=== PATIENT | female | born 1975 | race Two or more races ===

== ENCOUNTER 2023-02-17 10:13 | Outpatient (AMB) | payer OTHER, SELFPAY ==
--- NOTE | 2023-02-17 10:21 | A.OFFVIS_ITS ---
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 Was informed we can see her back in the office with her MRI. She accidentally brought her Mammogram discs instead of her MRI. Coding Level of Care Code Global (16642) Diagnoses Lumbago M54.50
== END 2023-02-17 10:35 | disposition home or self-care (01) ==
PROVIDERS: PCP Internal Medicine; Referring Provider Physician Assistant; Visit Provider Physician Assistant
DX: M54.50 Low back pain, unspecified (principal)
CPT/HCPCS: 99204

== ENCOUNTER → 2023-02-17 10:13 | Outpatient (BNVA) | payer OTHER, SELFPAY | PROVIDERS: PCP Physician Assistant; Visit Provider Physician Assistant | DX: M54.50 Low back pain, unspecified (principal) | CPT/HCPCS: 99202 ==

== ENCOUNTER 2023-02-26 10:12 | Outpatient (AMB) | payer OTHER, SELFPAY ==
--- NOTE | 2023-02-26 10:16 | HO.SPINEOV ---
Intake Intake Visit Reasons: radiculopathy Intake Note: Ms. De Los Santos is here today c/o low back pain. MRI done @ [facility]/brought disc. 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 She has a pleasant 47-year-old female who comes in today with a chief complaint of low back pain with radiation to her left lower leg. When asked to describe the distribution of her radiation she 1st points to her low back runs her hand across her left posterior buttocks, around over the anterior side of her left thigh across the front of her left knee, and terminates the distribution over the left medial ankle. She states this pain worsens with use of the left leg, and has caused her to feel that her left leg is weaker. She reports a pertinent medical history of a 6 level cervical spine fusion completed in 2020 at [facility] in [place], and also reports an L4-5 lumbar fusion in 2019 also completed at [facility] in [place]. She states that her back / leg pain was largely resolved after her surgery in 2018, then abruptly began again in 2021 with no inciting incident. She reports she is attempted to utilize all mwja-oqt-namrurh medications, and is also utilized ice/heat, heating pads, pain patches, and braces without significant relief of her symptoms. PMH: Fibromyalgia, asthma, hyperthyroidism. 6 level cervical fusion [facility], L4-5 lumbar fusion [facility]. Social hx: Patient does not smoke, reports no substance use. Medications Tylenol with codeine, Flexeril, albuterol, vitamin-D, B12, Zoloft. Allergies: Penicillin, gabapentin. Physical exam: The patient has 4/5 strength with dorsiflexion and knee extension on the left side (pain limiting). The rest of her strength is 5/5 intact. She is reduced sensation over her left anterior knee and left lateral thigh. The rest of her sensation is grossly intact. Her reflexes are 2+ and intact, including those at the patella, however she does have a confounding factor of an SSRI on her medication list. The patient ambulates well, and is able to rise from a seated position without difficulty. (+) straight leg raise on the left. (+) Saba's on the left. (-) Marbella finger test. (-) Null's, (-) clonus. Imaging review: MRI of the lumbar spine completed at [place] shows prior fusion at L4-5 with posterior instrumentation but no cage placement. There is severe central canal stenosis at L3-4 with severe foraminal stenosis at this level. Artifact significantly confounds ability to interpret exiting nerve roots status at L4-5, however the central canal is patent without notable stenosis. Impression: Rahel is a pleasant 47-year-old female who has a extensive history of spinal fusion surgery. She had a 6 level cervical fusion completed at [facility] and [place] in 2020, and has a very large surgical scar from her occiput to her mid-trapezius. She also has a 2 level fusion of the lumbar spine also completed at [facility]. Her symptoms and history are most consistent with a left-sided L4 nerve root impingement, causing severe radiculopathy down her left side. The dermatomal distribution in which she describes her symptoms match his L4 almost perfectly. Her weakness is in a muscular distribution that is consistent with L4. Her imaging supports this. We discussed the possibility of both a extension of her fusion to L3-4, and also discussed the possibility of a less invasive L3-4 laminectomy with foraminotomy. She was informed that I will need to review her films with Dr. Linares who will ultimately make the final decision. I will call her next week after I am able to reviewed this case with him. Thank you for allowing us to care for your patient. The total time spent with this visit with this patient was 45 minutes reviewing history, physical exam, MRI imaging review, and implementation of treatment plan or further diagnostic testing Toni Linares MD,PhD [facility] Coding Level of Care Code New Pt Level 4 (68566) Diagnoses Lumbar radiculopathy M54.16
== END 2023-02-26 10:57 | disposition home or self-care (01) ==
PROVIDERS: PCP Internal Medicine; Referring Provider Physician Assistant; Visit Provider Physician Assistant
DX: M54.16 Radiculopathy, lumbar region (principal)
CPT/HCPCS: 99214

== ENCOUNTER → 2023-02-26 10:12 | Outpatient (BNVA) | payer OTHER, SELFPAY | PROVIDERS: PCP Physician Assistant; Visit Provider Physician Assistant | DX: M54.16 Radiculopathy, lumbar region (principal) | CPT/HCPCS: 99212 ==

== ENCOUNTER 2023-03-02 16:28 | Emergency (ER) | payer OTHER, SELFPAY ==
--- NOTE | ~2023-03-02 | XR_ITS ---
EXAMINATION: XR CHEST CLINICAL INFORMATION: Cough COMPARISON: None available. TECHNIQUE: Frontal view of the chest was obtained. FINDINGS: No significant abnormality is noted involving the heart, lungs, mediastinum, bony thorax or soft tissues. XR/XR chest 1V IMPRESSION: Unremarkable examination.
[2023-03-02 16:47] VITALS: BP 131/73; PULSE 77; RESP 18; TEMP 36.6; O2SAT 97; BMI 33.5
--- NOTE | 2023-03-02 17:00 | ED.GENADULT ---
HPI - General Adult General Chief complaint: Upper Respiratory Symptoms Stated complaint: fever,chills,breathing dif, finished prednisone History of Present Illness HPI narrative: Left without completion of treatment Related Data Allergies Allergy/AdvReac Type Severity Reaction Status Date / Time gabapentin Allergy Angioedema Verified 03/02/23 16:47 latex Allergy Angioedema Verified 03/02/23 16:47 Penicillins [PCN] Allergy Angioedema Verified 03/02/23 16:47 tree nut Allergy Anaphylaxis Verified 03/02/23 16:47 PMFSH Social History Social History Advance Directives: No Advance Directives Information Provided: No Physical Exam ED Vital Signs: Vital Signs - 24 hr 03/02/23 16:47 Temperature 97.9 F Pulse Rate 77 Respiratory Rate 18 Blood Pressure 131/73 Pulse Oximetry 97 Oxygen Delivery Method Room Air BMI result Body Mass Index 33.5 Course Course Course Narrative: RME: 47-year-old female presents to ED coughing, chest pain, fever, and chills. Patient clearly on prednisone. Patient denies any pleurisy, leg swelling, calf pain. Deana chest x-ray ordered. Lungs clear. O2 sat 97% Medical Decision Making Lab Data Labs: Lab Results 03/02/23 Range/Units 17:04 Influenza Type A (PCR) NEGATIVE (Negative) Influenza Type B (PCR) NEGATIVE (Negative) RSV RNA Qual (PCR) NEGATIVE (Negative) SARS-CoV-2 RNA (RT-PCR) NEGATIVE (Negative) Discharge Plan Discharge Clinical Impression: Influenza Patient Disposition: Left W/O Completing Treatment Stand Alone Forms: Against Medical Advice Discharge Date/Time: 03/02/23 21:46
[2023-03-02 18:06] LABS: Influenza A PCR NEGATIVE (Negative); Influenza B PCR NEGATIVE (Negative); Resp Syncy Virus RNA Qual PCR NEGATIVE (Negative); SARS COV2 PCR INHOUSE NEGATIVE (Negative)
== END 2023-03-02 21:46 | disposition left against medical advice (07) ==
PROVIDERS: Physician Assistant; Emergency Provider Emergency Medicine; PCP Internal Medicine
DX: J11.1 Influenza due to unidentified influenza virus with other respiratory manifestations (principal); R50.9 Fever, unspecified; Z20.822 Contact with and (suspected) exposure to COVID-19; Z20.828 Contact with and (suspected) exposure to other viral communicable diseases
CPT/HCPCS: 0241U; 71045; 99281; 99283

== ENCOUNTER 2023-03-03 12:47 | Outpatient (REF) | payer OTHER, SELFPAY ==
--- NOTE | ~2023-03-03 | XR_ITS ---
EXAMINATION: XR LUMBOSACRAL SPINE WITH OBLIQUES CLINICAL INFORMATION: Radiculopathy of lumbar region COMPARISON: MRI lumbar spine from 11/11/2016 TECHNIQUE: 4 views of lumbar spine including lateral views during flexion and extension FINDINGS: Status post instrumented posterior spinal fusion and laminotomies at L4-L5. No osteolysis around the hardware. The fixation screws and posterior rods are well-positioned. There appears to be mature posterolateral bone graft at L4-L5. Chronic 0.2 cm of degenerative retrolisthesis and degenerative loss of disc space at L4-L5. The vertebral body heights are maintained. Mild degenerative narrowing of disc height at L3-L4. No lumbar spine instability on flexion or extension maneuvers. Sacrum and sacroiliac joints are unremarkable.. XR/XR lumbar spine 4V min IMPRESSION: * Degenerative disc disease of L4-L5, status post instrumented posterior spinal fusion. No hardware loosening. * Mild discovertebral degenerative change at L3-L4. * No evidence of lumbar spine instability on flexion or extension views.
== END 2023-03-03 12:48 | disposition home or self-care (01) ==
LOC: HO.HOSX 12:47
PROVIDERS: Visit Provider Physician Assistant
DX: M54.16 Radiculopathy, lumbar region (principal)
CPT/HCPCS: 72110

== ENCOUNTER 2023-06-10 06:11 | Day surgery (SDC) | payer OTHER, SELFPAY ==
[2023-05-27 10:36] VITALS: BP 136/86; PULSE 67; RESP 18; O2SAT 99; BMI 34.6
--- NOTE | 2023-05-27 10:46 | HO.ANESPROP2 ---
Documented by User: Lali Colon NP 05/27/23 10:56 HPI - Anesthesia Eval Consult details Narrative: 48yo F for Left L3-4 Micro Lumbar decompression No recent illness No CP/SOB with exercise 5 x weekly Asthma. STable (exac in 02/2023, but resolved) [facility] Active Problems Active Problems: All Active Problems Lumbar radiculopathy (Acute) Lumbago (Acute) Past Medical History Medical History Back pain Arthritis Spinal stenosis Thyroid disease Anxiety Bronchitis History of GI bleed Gastric ulcer Fibromyalgia Asthma Vitamin B 12 deficiency Family History Family history of problems with anesthesia: Yes (Mom PONV) Surgical History Surgical History Hx of abdominoplasty Hx of section Hx of gastric bypass Hx of hernia repair Hx of bilateral cataract extraction Hx of hysterectomy Hx of elbow surgery History of ear surgery History of abdominal surgery Hx of fusion of cervical spine History of lumbar fusion History of Problems with Anesthesia: Yes (PONV - scopolamine patch) Social History Social History Are you a primary critical care physician to a significant other at home: No Do you presently have visiting nurse or other home services: No Patient Tobacco Use Status: Never used Tobacco Use of substances other than those prescribed or required for medical reasons: Yes Substance Use Frequency: Occasionally Have you been hit, kicked, punched, or otherwise hurt by someone within the past year? If so, by whom?: No Are you DNR?: No Advance Directives: No Advance Directives Information Provided: Yes Advance Directives on File: No Recently lost weight without trying: No How much weight loss: 2-13 pounds Eating poorly because of decreased appetite: No Nutrition screen score: 1 Nutrition Risks: No Nutritional Risk Patient : No : No Meds Allergies Allergy/AdvReac Type Severity Reaction Status Date / Time gabapentin Allergy Angioedema Verified 03/02/23 16:47 latex Allergy Angioedema Verified 03/02/23 16:47 Penicillins [PCN] Allergy Angioedema Verified 03/02/23 16:47 tree nut Allergy Anaphylaxis Verified 03/02/23 16:47 Home Medications ?Medication ?Instructions ?Recorded ?Confirmed ?Last Taken ?Type albuterol sulfate 90 mcg/actuation 2 puff inhalation Q4-6H PRN 05/26/23 05/26/23 Unknown History aerosol inhaler Shortness Of Breath Or Wheezing cholecalciferol (vitamin D3) 125 375 mcg PO QWEEK 05/26/23 05/27/23 Unknown History mcg (5,000 unit) capsule cyanocobalamin (vitamin B-12) 1,000 mcg IM QMONTH 05/26/23 05/26/23 Unknown History 1,000 mcg/mL injection solution folic acid 1 mg tablet 1 mg PO DAILY 05/26/23 05/26/23 Unknown History hydroxyzine HCl 25 mg tablet 25 mg PO DAILY PRN Anxiety 05/26/23 05/27/23 Unknown History sertraline 25 mg tablet 25 mg PO DAILY 05/26/23 05/26/23 Unknown History valacyclovir 500 mg tablet 500 mg PO DAILY PRN Outbreak 05/26/23 05/26/23 Unknown History Exam Height,Weight and Vital Signs: Height 5 ft 2 in Weight 85.729 kg Last Vital Signs Pulse 67 05/27/23 10:36 Resp 18 05/27/23 10:36 BP 136/86 05/27/23 10:36 Pulse Ox 99 05/27/23 10:36 O2 Del Method Room Air 05/27/23 10:36 Airway Mallampati Class: II TM Dist: >3cm Neck ROM: Limited (s/p cspine fusion) Partial: Upper Loose/Missing/Broken Teeth: Yes (Crowned) Heart: RRR Lungs: CTAB Assessment and Plan Assessment Anesthesia Assessment: Anesthesia Plan Discussed and PAT Visit Final Anesthetic Review Family History of Problems with Anesthesia: Yes (Mom PONV) History of Problems with Anesthesia: Yes (PONV - scopolamine patch) Documented by User: Mireya Hood MD 06/10/23 07:29 [facility] Past Medical History Medical History Back pain Arthritis Spinal stenosis Thyroid disease Anxiety Bronchitis History of GI bleed Gastric ulcer Fibromyalgia Asthma Vitamin B 12 deficiency Surgical History Surgical History Hx of abdominoplasty Hx of section Hx of gastric bypass Hx of hernia repair Hx of bilateral cataract extraction Hx of hysterectomy Hx of elbow surgery History of ear surgery History of abdominal surgery Hx of fusion of cervical spine History of lumbar fusion Social History Social History Are you a primary critical care physician to a significant other at home: No Do you presently have visiting nurse or other home services: No Patient Tobacco Use Status: Never used Tobacco Use of substances other than those prescribed or required for medical reasons: Yes Substance Use Frequency: Occasionally Have you been hit, kicked, punched, or otherwise hurt by someone within the past year? If so, by whom?: No Are you DNR?: No Advance Directives: No Advance Directives Information Provided: Yes Advance Directives on File: No Recently lost weight without trying: No How much weight loss: 2-13 pounds Eating poorly because of decreased appetite: No Nutrition screen score: 1 Nutrition Risks: No Nutritional Risk Patient : No : No Meds Allergies Allergy/AdvReac Type Severity Reaction Status Date / Time gabapentin Allergy Angioedema Verified 03/02/23 16:47 latex Allergy Angioedema Verified 03/02/23 16:47 Penicillins [PCN] Allergy Angioedema Verified 03/02/23 16:47 tree nut Allergy Anaphylaxis Verified 03/02/23 16:47 Home Medications ?Medication ?Instructions ?Recorded ?Confirmed ?Last Taken ?Type albuterol sulfate 90 mcg/actuation 2 puff inhalation Q4-6H PRN 05/26/23 05/26/23 Unknown History aerosol inhaler Shortness Of Breath Or Wheezing cholecalciferol (vitamin D3) 125 375 mcg PO QWEEK 05/26/23 05/27/23 Unknown History mcg (5,000 unit) capsule cyanocobalamin (vitamin B-12) 1,000 mcg IM QMONTH 05/26/23 05/26/23 Unknown History 1,000 mcg/mL injection solution folic acid 1 mg tablet 1 mg PO DAILY 05/26/23 05/26/23 Unknown History hydroxyzine HCl 25 mg tablet 25 mg PO DAILY PRN Anxiety 05/26/23 05/27/23 Unknown History sertraline 25 mg tablet 25 mg PO DAILY 05/26/23 05/26/23 Unknown History valacyclovir 500 mg tablet 500 mg PO DAILY PRN Outbreak 05/26/23 05/26/23 Unknown History Assessment and Plan Final Anesthetic Review NPO: Yes ASA Class: II Final Preanesthetic Review: No Changes in Pt Med Stat, Meds/Allgs Chart Reviewed, Consent Obtained/Reviewed and Anes Risks/Benef Reviewed Patient Risk: Low Procedure Risk: Intermediate Anesthetic Plan Anesthetic Plan: GA Disposition: Standard PACU
[2023-05-27 12:04] LABS: Hematocrit 38.6 % (37.0-47.0); Hemoglobin 12.6 g/dl (12.0-16.0); Mean Corpuscular HGB Conc 32.6 g/dl (31.0-35.0); Mean Corpuscular Hemoglobin 29.5 pg (27.0-33.0); Mean Corpuscular Volume 90.4 fL (80.0-98.0); Platelet Count 381 X10*3/uL (160-400); Red Blood Count 4.27 X10*6/uL (4.20-5.50); White Blood Count 6.1 X10*3/uL (4.8-10.8)
[2023-05-27 12:37] LABS: Anion Gap 10 (12-20); Blood Urea Nitrogen 8 mg/dL (9-16); Calcium 9.5 mg/dL (8.4-10.2); Carbon Dioxide 27 mmol/L (22-29); Chloride 106 mmol/L (96-108); Creatinine Clr Calc Pharmacy 99.1; Estimated Glomerular Filt Rate > 60; Glucose Random 86 mg/dL (60-115); Sodium 139 mmol/L (135-145)
[2023-06-10] VITALS (11 sets, daily range): BP systolic 110–146; BP diastolic 69–98; PULSE 59–82; RESP 12–19; TEMP 36.1–36.8; O2SAT 96–100; BMI 35.3
--- NOTE | ~2023-06-10 | FL_ITS ---
EXAMINATION: XR FLUOROSCOPY WITH IMAGES CLINICAL INFORMATION: L3-L4 microlumbar decompression. COMPARISON: Lumbar spine radiographs dated 03/04/2023; MRI lumbar spine dated 03/04/2023. TECHNIQUE: Fluoroscopy Supervised By: Dr. Vinod Linares. Fluoroscopy Time: 3.3 seconds. Cumulative Dose: 1.8038 mGy. DAP: 0.5121 Gycm2. Images: 1. FINDINGS: The submitted images show a surgical probe at the posterior L3-L4 level. There has been a prior L4-L5 posterior fusion. FL/FL guidance in OR IMPRESSION: Intraoperative fluoroscopic guidance is provided during L3-L4 microlumbar decompression. Please see the patient's Operative Report for full procedural details.
[2023-06-10] MEDS: methocarbamoL 750 MG TABLET PO (06:44)
[2023-06-10] MEDS: vancomycin HCL 1,500 MG in 0.9 % Sodium Chloride 500 ML 333.33 MG IV (06:56)
[2023-06-10] MEDS: Lactated Ringers 1,000 ML 100 ML IVCONT (06:57)
--- NOTE | 2023-06-10 07:01 | P.HPSUR_ITS ---
Pre-Procedural Eval Section A - 24 Hr Update-Section A only Date of Service: 06/10/23 The patient is an INPATIENT: No Changes since office visit: No Cold of Flu in the past 2 weeks, No New Medical Problems, No Changes in Medication and No Patient answered all questions The patient has been examined within 24 hours of the surgical procedure. The History & Physical has been completed within 30 days and I have reviewed it.: No Section B - Complete if H&P > 30 days Chief Complaint: Radiculopathy, lumbar region Allergies: Allergies Allergy/AdvReac Type Severity Reaction Status Date / Time gabapentin Allergy Angioedema Verified 03/02/23 16:47 latex Allergy Angioedema Verified 03/02/23 16:47 Penicillins [PCN] Allergy Angioedema Verified 03/02/23 16:47 tree nut Allergy Anaphylaxis Verified 03/02/23 16:47 Review of Systems Sugical H&P ROS: Negative: Constitution, Cardiovascular, Respiratory, Gerry rological, Psychiatric, Hem-Onc, Allergic/Immunologic, Gastrointestinal, Genitourinary, Musculoskeletal, Integumentary, Endocrine and Eyes/Ears/Nose/Throat Exam Surgical H&P Exam: Not Evaluated: HEENT, Not Evaluated: Heart, Not Evaluated: Lungs, Not Evaluated: Extremities, Not Evaluated: Abdomen, Not Evaluated: Skin and Not Evaluated: Neurological Plan Diagnosis/Plan: Unchanged left L3-4 decompression Time Spent With Patient Time: Total time managing care of this patient today _10___ minutes.
--- NOTE | 2023-06-10 08:33 | P.OP_ITS ---
Operative Note Operative Note Date of Service: 06/10/23 Narrative: Preoperative Diagnosis: L3-4 spinal stenosis/lateral recess stenosis/neural foraminal stenosis Operation: Left L3-4 Laminotomy, Partial facetectomy and foraminotomy with use of microscope Consent Informed Consent was obtained for this operation. I have explained the nature, purpose and benefits of the operation. I have discussed the risks and benefit of the operation including possible complications or adverse events with patient/family. Alternative(s) were discussed with the patient with their relative benefits and risks as well as the consequences of not accepting the operation were included in obtaining consent. Surgeon: FERNANDO LEAL MD, PHD Procedure Assisted By: Prabhu Garcia Description of Procedure This 48-year-old female status post L4-5 fusion in another institution. She developed adjacent degenerative disc disease with stenosis L3-4. She has left unilateral note Swetha claudication symptoms that she was offered a left-sided decompression. She is aware that there is a possibility she needs an additional fusion in the near future. The patient was offered a decompression. The procedure complications were explained. The patient was consented. The patient was brought to the operating room and endotracheally intubated. The patient was turned in prone position on the Jovon frame. Prep and drape was done followed by timeout. The Physician medical claims assistant provided access. A mid lumbar incision was made followed by release of the paravertebral muscle on the left side to expose the L3-4 lamina and facet joints. An intraoperative x-ray was obtained to confirm the correct level. The microscope was brought in. I took over the procedure. The high-speed drill was used to do a L3-4 laminotomy until flavum ligament was reached. A #2 Kerrison was used to expand the laminotomy near flush to the pedicles and to include a partial facetectomy. The flavum ligament was opened and resected with a #3 Kerrison to decompress the underlying thecal sac. The flavum ligament was removed to decompress the lateral recess and the exiting L4 nerve root. A long nerve hook could be easily passed along the medial side of the pedicle as a sign of adequate decompression. The microscope was removed. Hemostasis was done. The physician medical claims assistant close the Incision in 2 layers. Steri-Strips were used to approximate incision. An OpSite with Tegaderm was used to cover the incision. All sponge needle counts were correct. Patient was extubated and transported in stable is to recovery room. Anesthesia: General Estimated Blood Loss (ml): 10 mL Complications: None Duration of Surgery: 45 Minutes Postoperative Plan: Discharge to home
--- NOTE | 2023-06-10 08:39 | PM.DS ---
DS: Providers Provider Date of Service: 06/10/23 Date of discharge: 06/10/23 Primary care physician: Nicole Burns MD Admitting clinician: Jose Linares DS: Diagnosis Discharge Diagnosis (1) Lumbar radiculopathy: Status: Acute DS: Summary Time Attestation Discharge Coordination Time (in mins): 5 Quality: Safe Use of Opioids Does Pt have an Active Cancer Diagnosis on the Problem List?: No Quality: Stroke Does the patient have a stroke diagnosis?: No Physical Exam Vital Signs: Vital Signs: Last Vital Signs Temp 98.2 F 06/10/23 06:37 Pulse 65 06/10/23 06:37 Resp 16 06/10/23 06:37 BP 124/83 06/10/23 06:37 Pulse Ox 96 06/10/23 06:37 O2 Del Method Room Air 06/10/23 06:37 BMI result Body Mass Index 35.3 Discharge Plan Discharge Patient Disposition: Home, Self-Care Referrals: Nicole Mcdowell MD [Primary Care Provider] - 1 Week Discharge Medications: New docusate sodium [Colace] 100 mg capsule 100 mg PO BID Qty: 20 0RF oxycodone 5 mg tablet 5 mg PO Q4H PRN (Reason: pain) Qty: 30 0RF Rx Instructions: Partial Fill upon patient request. Continued sertraline 25 mg tablet 25 mg PO DAILY folic acid 1 mg tablet 1 mg PO DAILY hydroxyzine HCl 25 mg tablet 25 mg PO DAILY PRN (Reason: Anxiety) albuterol sulfate 90 mcg/actuation Hfa Aerosol Inhaler 2 puff INHALATION Q4-6H PRN (Reason: Shortness Of Breath Or Wheezing) cholecalciferol (vitamin D3) 125 mcg (5,000 unit) Capsule 375 mcg PO QWEEK valacyclovir 500 mg Tablet 500 mg PO DAILY PRN (Reason: Outbreak) cyanocobalamin (vitamin B-12) 1,000 mcg/mL Solution 1,000 mcg IM QMONTH Discharge Orders: Discharge Order (Routine); Ordered 06/10/23 Ordered By: Prabhu Owens Diet: Advance to usual diet Activity on Discharge: As tolerated Activity Restrictions/Additional Instructions: After your spinal surgery we ask you to observe the following restrictions/guidelines: Activity: It is normal to feel some discomfort as you increase your activity, but that will improve with time. We ask you avoid heavy lifting or acitivities that cause pain. As a general rule, 8lbs is a safe limit for lifting right after surgery. Walk as much as you feel comfortable but not to exhaustion. You will feel extra tired the first few days after surgery. Stay well hydrated. It is OK to walk up and down stairs You may return to driving when you are off narcotics (such as vicodin, oxycodone, dilaudid, etc), and you are back to normal functional capacity. If you have any concerns please check with office before driving. Return to work is specific to each patient and each surgery, so please speak with your doctor/PA at first follow up. Please bring paperwork such as FMLA at that time if you need it filled out. Medications: For optimum pain control, it is best to start with a combination of 500 mg of Tylenol every 4 hours with 600 mg of Motrin every 8 hours, and use narcotics as needed in between for breakthrough pain. We will give you a short supply of narcotics after surgery (usually one weeks worth). If you need more please call the office but do not use more than prescribed. You will need to give our office 48 hours notice if you need narcotics refilled and we do not fill narcotics on weekends or evenings. If you are on a narcotic, it is a good idea to take a stool softener such as colace or senna to avoid constipation If you take blood thinner such as aspirin, Plavix, Coumadin, Effient, Eliquis etc for conditions such as Afib, DVT, Pulmonary embolus, coronary disease, stents etc please speak with your surgeon about specific details as to when you can resume these medications. You can resume NSAIDs on post op day 1 (eg: Motrin, Naproxen, etc). Follow up: Please call the office, , after surgery to arrange a 3 week follow up for wound check. Wound Care: You may remove your dressing on the first day after surgery. ?You may ?leave open to air. Please do not remove the steri strips underneath. they will fall off on their own in one week. IT IS NORMAL FOR THE WOUND TO OOZE OR BE BLOODY FOR A FEW DAYS AFTER SURGERY. ?IF THIS HAPPENS JUST PLACE NEW DRESSING OVER IT TO AVOID STAINING CLOTHES. You may shower on post op day # 1 We ask that you do not let the water soak the wound. If it does get wet, just towel dry lightly. Please do not scrub your incision or place any type of chemical/ointment on the wound. No tub baths, pools or jacuzzis for one month. If you have any leaking or redness from your wound, or fevers, please call office Print Language: Slovenian
[2023-06-10] MEDS: HYDROmorphone HCl 0.5 MG/0.5 ML SYRINGE 0.25 MG IVPUSH ×4 (09:12→09:32)
== END 2023-06-10 11:02 | disposition home or self-care (01) ==
PROVIDERS: Nurse Practitioner; PCP Internal Medicine; Visit Provider Neurological Surgery
PROC: (CPT 63047; principal; 2023-06-10 07:30)
DX: M54.16 Radiculopathy, lumbar region (principal); M48.061 Spinal stenosis, lumbar region without neurogenic claudication; M79.7 Fibromyalgia; M54.50 Low back pain, unspecified; Z98.1 Arthrodesis status; J45.909 Unspecified asthma, uncomplicated; E05.90 Thyrotoxicosis, unspecified without thyrotoxic crisis or storm; Z79.899 Other long term (current) drug therapy
CPT/HCPCS: 63047; 36415; 80048; 85027; J0131; J1100; J1170; J1885; J2250; J2405; J2704; J3010; J3371

== ENCOUNTER → 2023-06-10 06:11 | Outpatient (BNV) | payer OTHER, SELFPAY | PROVIDERS: PCP Internal Medicine; Visit Provider Neurological Surgery | DX: M54.16 Radiculopathy, lumbar region (principal) | CPT/HCPCS: 63047; 99499 ==

== ENCOUNTER 2023-06-30 13:08 | Outpatient (AMB) | payer OTHER, SELFPAY ==
--- NOTE | 2023-06-30 13:09 | HO.SPINEOV ---
Intake Visit Reasons: 1st post op Intake Note: Ms. De Los Santos is here today for 1st Post-op appointment. Program Director/Music Director Required: No Allergies gabapentin Allergy (Verified 06/30/23 13:12) Angioedema latex Allergy (Verified 06/30/23 13:12) Angioedema Penicillins [PCN] Allergy (Verified 06/30/23 13:12) Angioedema tree nut Allergy (Verified 06/30/23 13:12) Anaphylaxis Assessment & Plan Assessment & Plan (1) Status post lumbar spine surgery for decompression of spinal cord: Code(s): Z98.890 - Other specified postprocedural states Category: Medical Plan Procedure: Left L3-4 Laminotomy, Partial facetectomy and foraminotomy Rahel comes in today for her 1st postoperative visit. She reports she is satisfied with the surgery and does feel better than she did pre-operatively. She states she is up walking around and completing the majority of her ADLs without sisue. She is able to climb stairs and walk without assistance. She reports that she still has a very mild left sided radiculopathy, which is worse at night. We discussed how this is likely a result of postoperative inflammation, and should resolve in the coming weeks. She was encouraged to get up and ambulate around her home and outside as much as possible. She asked several questions regarding postoperative healing course which I answered to the best of my ability. No new neurological deficits. Patient is able to ambulate well, rises from a seated position without difficulty. She had some remaining Steri-Strips over the incision site so I removed them. Incision site is closed, well healing, with no signs of drainage. We will follow-up with the patient in 6 weeks for her 2nd postoperative visit. Toni Linares MD,PhD [facility] Coding Level of Care Code Global (83136) Diagnoses Status post lumbar spine surgery for decompression of spinal cord Z98.890
== END 2023-06-30 13:30 | disposition home or self-care (01) ==
PROVIDERS: PCP Internal Medicine; Visit Provider Physician Assistant
DX: Z98.890 Other specified postprocedural states (principal)
CPT/HCPCS: 99024

== ENCOUNTER → 2023-06-30 13:08 | Outpatient (BNVA) | payer MEDICAID, SELFPAY | PROVIDERS: PCP Internal Medicine; Visit Provider Physician Assistant | DX: Z48.811 Encounter for surgical aftercare following surgery on the nervous system (principal) | CPT/HCPCS: 99212 ==

== ENCOUNTER 2023-08-16 09:30 | Outpatient (AMB) | payer OTHER, SELFPAY ==
--- NOTE | 2023-08-16 09:38 | HO.SPINEOV ---
Intake Visit Reasons: 2nd post op Intake Note: Ms. De Los Santos is here today for a 2nd post op Tamper Operator Required: No Allergies gabapentin Allergy (Verified 06/30/23 13:12) Angioedema latex Allergy (Verified 06/30/23 13:12) Angioedema Penicillins [PCN] Allergy (Verified 06/30/23 13:12) Angioedema tree nut Allergy (Verified 06/30/23 13:12) Anaphylaxis Assessment & Plan Assessment & Plan (1) Status post lumbar spine surgery for decompression of spinal cord: Code(s): Z98.890 - Other specified postprocedural states Category: Medical Plan Rahel is a pleasant 48 y/o female who is s/p Left L3-4 Laminotomy, Partial facetectomy and foraminotomy. She continues to report good improvement of symptoms, and states that her left-sided radiculopathy that worsens at night has subsided. She has back to the gym and is engaging in mild cardiovascular activity without issue. She states that her left leg has essentially returned to normal. She does get the occasional feelings of tenderness in her low back but these are short-lived. On examination she is able to ambulate well and rises from a seated position without the assistance of a chair. Her incision site is closed and well healed. There is no need for continued routine follow-up with Rahel. She may follow-up on an as-needed basis. Toni Linares MD,PhD [facility] Coding Level of Care Code Global (55313) Diagnoses Status post lumbar spine surgery for decompression of spinal cord Z98.890
== END 2023-08-16 09:53 | disposition home or self-care (01) ==
PROVIDERS: PCP Internal Medicine; Visit Provider Physician Assistant
DX: Z98.890 Other specified postprocedural states (principal)
CPT/HCPCS: 99024

== ENCOUNTER → 2023-08-16 09:30 | Outpatient (BNVA) | payer OTHER, SELFPAY | PROVIDERS: PCP Internal Medicine; Visit Provider Physician Assistant | DX: Z09 Encounter for follow-up examination after completed treatment for conditions other than malignant neoplasm (principal) | CPT/HCPCS: 99212 ==

== ENCOUNTER 2024-08-01 15:27 | Emergency (ER) | payer OTHER, SELFPAY ==
[2024-08-01 15:53] VITALS: BP 126/80; PULSE 62; RESP 16; TEMP 36.4; O2SAT 99; BMI 34.0
--- NOTE | 2024-08-01 15:58 | ECG_ITS ---
Test Reason : Abdominal pain Blood Pressure : */* mmHG Vent. Rate : 66 BPM Atrial Rate : 66 BPM P-R Int : 144 ms QRS Dur : 94 ms QT Int : 418 ms P-R-T Axes : 27 -13 2 degrees QTcB Int : 438 ms Normal sinus rhythm with sinus arrhythmia Moderate voltage criteria for LVH, may be normal variant ( R in aVL , [place] product ) Borderline ECG No previous ECGs available Referred By: Les Rosado Electronically Signed By: NATALY ENRIQUEZ MD
--- NOTE | 2024-08-01 15:58 | ED.GENADULT ---
HPI - General Adult General Chief complaint: Abdominal Pain Stated complaint: Stomach ulcers History of Present Illness HPI narrative: Left without completion of treatmen by ED provider Related Data Home Medications ?Medication ?Instructions ?Recorded ?Confirmed albuterol sulfate 90 mcg/actuation 2 puff inhalation Q4-6H PRN 05/26/23 05/26/23 aerosol inhaler Shortness Of Breath Or Wheezing cholecalciferol (vitamin D3) 125 375 mcg PO QWEEK 05/26/23 05/27/23 mcg (5,000 unit) capsule cyanocobalamin (vitamin B-12) 1,000 mcg IM QMONTH 05/26/23 05/26/23 1,000 mcg/mL injection solution folic acid 1 mg tablet 1 mg PO DAILY 05/26/23 05/26/23 hydroxyzine HCl 25 mg tablet 25 mg PO DAILY PRN Anxiety 05/26/23 05/27/23 sertraline 25 mg tablet 25 mg PO DAILY 05/26/23 05/26/23 valacyclovir 500 mg tablet 500 mg PO DAILY PRN Outbreak 05/26/23 05/26/23 Previous Rx's ?Medication ?Instructions ?Recorded docusate sodium 100 mg capsule 100 mg PO BID #20 caps 06/10/23 (Colace) oxycodone 5 mg tablet 5 mg PO Q6H PRN severe pain (scale 06/16/23 score 7-10) #30 tabs Allergies Allergy/AdvReac Type Severity Reaction Status Date / Time gabapentin Allergy Angioedema Verified 08/01/24 15:55 latex Allergy Angioedema Verified 08/01/24 15:55 Penicillins [PCN] Allergy Angioedema Verified 08/01/24 15:55 tree nut Allergy Anaphylaxis Verified 08/01/24 15:55 PMFSH Past Medical History Medical History Back pain Arthritis Spinal stenosis Thyroid disease Anxiety Bronchitis History of GI bleed Gastric ulcer Fibromyalgia Asthma Vitamin B 12 deficiency Surgical History Hx of abdominoplasty Hx of section Hx of gastric bypass Hx of hernia repair Hx of bilateral cataract extraction Hx of hysterectomy Hx of elbow surgery History of ear surgery History of abdominal surgery Hx of fusion of cervical spine History of lumbar fusion Social History Social History Are you a primary career development specialist to a significant other at home: No Do you presently have visiting nurse or other home services: No Patient Tobacco Use Status: Never used Tobacco Advance Directives: No Advance Directives Information Provided: No Physical Exam ED Vital Signs: Vital Signs - 24 hr 08/01/24 15:53 Temperature 97.6 F Pulse Rate 62 Respiratory Rate 16 Blood Pressure 126/80 Pulse Oximetry 99 Oxygen Delivery Method Room Air BMI result Body Mass Index 34.0 Course Course Course Narrative: RME: 49-year-old female presents to ED for epigastric acid burning sensation with nausea and vomiting. Patient states yesterday she had 1 episode of vomiting blood. Today she has no episode of vomiting blood. Labs EKG ordered. Medical Decision Making Lab Data 08/01/24 16:03 08/01/24 16:03 Labs: Lab Results 08/01/24 Range/Units 16:03 WBC 5.6 (4.8-10.8) X10*3/uL RBC 4.03 L (4.20-5.50) X10*6/uL Hgb 11.0 L (12.0-16.0) g/dl Hct 33.5 L (37.0-47.0) % MCV 83.1 (80.0-98.0) fL MCH 27.3 (27.0-33.0) pg MCHC 32.8 (31.0-35.0) g/dl RDW 15.4 (11.0-16.0) % Plt Count 353 (160-400) X10*3/uL MPV 9.6 (9.4-12.3) fL Immature Gran % (Auto) 0.0 (0.0-0.4) % Neut % (Auto) 46.9 (45-73) % Lymph % (Auto) 44.1 H (20-40) % [place] % (Auto) 6.1 (2-11) % Eos % (Auto) 2.7 (0-4) % Baso % (Auto) 0.2 (0-2) % Lymph # (Auto) 2.5 (1.2-4.9) X10*3/uL [place] # (Auto) 0.3 (0.1-1.2) X10*3/uL Eos # (Auto) 0.2 (0.0-0.4) X10*3/uL Baso # (Auto) 0.0 (0.0-0.2) X10*3/uL Abs Immat Gran (auto) 0.00 (0.00-0.03) X10*3/uL Absolute Neuts (auto) 2.6 (2.0-8.3) x10*3/uL Absolute Nucleated RBC 0.000 (0.0-0.012) X10*3/uL Nucleated RBC % (auto) 0.0 (0.0-0.2) /100WBC Sodium 141 (135-145) mmol/L Potassium 3.7 (3.3-5.1) mmol/L Chloride 108 (96-108) mmol/L Carbon Dioxide 26 (22-29) mmol/L Anion Gap 11 L (12-20) BUN 7 L (9-16) mg/dL Creatinine 0.72 (0.5-1.4) mg/dL Estim Creat Clear Calc 97.2 Estimated GFR > 60 Random Glucose 86 (60-115) mg/dL Calcium 9.4 (8.4-10.2) mg/dL Total Bilirubin 0.5 (0.0-1.0) mg/dL AST 29 (5-31) U/L ALT 16 (0-31) U/L Alkaline Phosphatase 84 (39-117) U/L Troponin I High Sens < 2.7 (<3.5-17.0) ng/L Total Protein 7.3 (6.5-8.0) g/dL Albumin 4.6 (3.5-5.0) g/dL Lipase 28 (8-78) U/L Discharge Plan Discharge Clinical Impression: Abdominal pain Patient Disposition: Left W/O Completing Treatment Prescriptions: No Action oxycodone 5 mg tablet 5 mg PO Q6H PRN (Reason: severe pain (scale score 7-10)) Qty: 30 0RF Rx Instructions: Partial Fill upon patient request. sertraline 25 mg tablet 25 mg PO DAILY folic acid 1 mg tablet 1 mg PO DAILY hydroxyzine HCl 25 mg tablet 25 mg PO DAILY PRN (Reason: Anxiety) albuterol sulfate 90 mcg/actuation Hfa Aerosol Inhaler 2 puff INHALATION Q4-6H PRN (Reason: Shortness Of Breath Or Wheezing) cholecalciferol (vitamin D3) 125 mcg (5,000 unit) Capsule 375 mcg PO QWEEK valacyclovir 500 mg Tablet 500 mg PO DAILY PRN (Reason: Outbreak) cyanocobalamin (vitamin B-12) 1,000 mcg/mL Solution 1,000 mcg IM QMONTH docusate sodium [Colace] 100 mg capsule 100 mg PO BID Qty: 20 0RF Discharge Date/Time: 08/01/24 22:18
[2024-08-01 16:23] LABS: MANUAL DIFF FLAG NO
[2024-08-01 16:29] LABS: Basophils Percent Auto 0.2 % (0-2); Eosinophils Absolute Auto 0.2 X10*3/uL (0.0-0.4); Eosinophils Percent Auto 2.7 % (0-4); Hematocrit 33.5 % (37.0-47.0); Lymphocytes Absolute Auto 2.5 X10*3/uL (1.2-4.9); Lymphocytes Percent Auto 44.1 % (20-40); Mean Corpuscular HGB Conc 32.8 g/dl (31.0-35.0); Mean Corpuscular Hemoglobin 27.3 pg (27.0-33.0); Mean Corpuscular Volume 83.1 fL (80.0-98.0); Mean Platelet Volume 9.6 fL (9.4-12.3); Monocytes Absolute Auto 0.3 X10*3/uL (0.1-1.2); Monocytes Percent Auto 6.1 % (2-11); Neutrophils Absolute Auto 2.6 x10*3/uL (2.0-8.3); Neutrophils Percent Auto 46.9 % (45-73); Platelet Count 353 X10*3/uL (160-400); Red Blood Count 4.03 X10*6/uL (4.20-5.50); Red Cell Distribution Width 15.4 % (11.0-16.0); White Blood Count 5.6 X10*3/uL (4.8-10.8)
[2024-08-01 16:37] LABS: Alanine Aminotransferase 16 U/L (0-31); Albumin Level 4.6 g/dL (3.5-5.0); Alkaline Phosphatase 84 U/L (39-117); Anion Gap 11 (12-20); Aspartate Amino Transferase 29 U/L (5-31); Bilirubin Total 0.5 mg/dL (0.0-1.0); Blood Urea Nitrogen 7 mg/dL (9-16); Calcium 9.4 mg/dL (8.4-10.2); Carbon Dioxide 26 mmol/L (22-29); Chloride 108 mmol/L (96-108); Creatinine Clr Calc Pharmacy 97.2; Estimated Glomerular Filt Rate > 60; Glucose Random 86 mg/dL (60-115); Lipase 28 U/L (8-78); Potassium 3.7 mmol/L (3.3-5.1); Sodium 141 mmol/L (135-145); Total Protein 7.3 g/dL (6.5-8.0)
[2024-08-01 16:46] LABS: Troponin-I High Sensitivity < 2.7 ng/L (<3.5-17.0)
--- OUTSIDE RECORDS SUMMARY | 2024-08-01 20:19 | XMS_ITS | Clinical Summary ---
Author Organization [facility] [address] [place] [address] [place] [phone] Phone Care Team Providers Care Yacht Hand Name Role Phone Nicole Barber MD Primary Care Prov ider Allergies Active Allergy Reactions Criticality Noted Date Comments Apple 08/18/2019 Wood 08/18/2019 Gabapentin Low 07/24/2020 Other Reaction(s): OTHER depression Gluten 08/18/2019 Latex Medium 10/30/2014 Other Reaction(s): Hives/Urticaria blisters Other 12/16/2023 Justicia Adhatoda ([place] Nut Tree) [Justicia Adhatoda]Anaphylaxis TapeRash/Dermatitis Penicillin G 10/22/2015 Other Reaction(s): Hives/Urticaria Tree Nuts 03/16/2024 Medications albuterol HFA (PROAIR HFA ; PROVENTIL HFA ; VENTOLIN HFA) 90 mcg/actuation inhaler Inhale 2 Puffs into the lungs every 4 hours as needed for Cough or Wheezing. 11/15/19 24 Active folic acid (FOLVITE) 1 mg tablet Take 1 tablet (1,000 mcg total) by mouth 1 (one) time each day. 11/15/19 24 Active hydrOXYzine HCL (ATARAX) 25 mg tablet Take 1 Tablet by mouth daily for 180 days. 10/07/19 24 Active sertraline (ZOLOFT) 25 mg tablet Take 1 tablet (25 mg total) by mouth 1 (one) time each day. 09/10/19 24 Active cyclobenzaprin e (FLEXERIL) 10 mg tablet Take 1 Tablet by mouth 3 times daily as needed (muscle pain) for up to 30 days. 06/16/19 24 Active montelukast (SINGULAIR) 10 mg tablet Take 1 Tablet by mouth at bedtime. 04/27/19 24 Active albuterol 2.5 mg /3 mL (0.083 %) nebulizer solution Take 1 Vial by nebulization every 4 hours as needed for Wheezing. 03/04/19 24 Active fluticasone HFA (FLOVENT HFA) 220 mcg/actuation inhaler Inhale 1 Puff into the lungs 2 times daily. 03/04/19 24 Active diclofenac (VOLTAREN) 1 % topical gel Apply 4 g topically 4 times daily as needed for Other (arthritis pain). 01/14/20 23 Active valACYclovir (VALTREX) 500 mg tablet Take 500 mg by mouth daily as needed. 08/10/19 19 Active cholecalcifero l (VITAMIN D-3) 125 mcg (5,000 unit) capsule TAKE 3 CAPSULES BY MOUTH EVERY 7 DAYS. 36 capsule 3 04/04/19 25 Active estradioL (VIVELLE-DOT) 0.0375 mg/[address] 1 patch on the skin 2 (two) times a week. 24 patch 1 05/19/19 25 026 Active estradioL (ESTRACE) 0.01 % (0.1 mg/gram) vaginal cream PLEASE SEE ATTACHED FOR DETAILED DIRECTIONS 127.5 g 1 07/06/19 25 Active estradioL (Estrace) 0.01 % (0.1 mg/gram) vaginal cream Insert 1 gram vaginally for 2 weeks, then 0.5 gram vaginally for 2 weeks, then 0.5 gram vaginally MWF for maintenance. 127.5 g 1 07/07/19 25 Active estradioL (ESTRACE) 0.01 % (0.1 mg/gram) vaginal cream PLEASE SEE ATTACHED FOR DETAILED DIRECTIONS 127.5 g 1 06/29/19 25 025 Discontinued Hospital, Clinic, or Other Facility Administered Medication Ordered Dose Route Frequency Start Date End Date Status cyanocobalamin (VITAMIN B-12) injection 1,000 mcgIndications:Vitamin B12 deficiency 1000 mcg IM Every 30 days 07/12/2024 01/08/2025 Active cyanocobalamin (VITAMIN B-12) injection 1,000 mcgIndications:Vitamin B12 deficiency 1000 mcg IM Every 30 days 01/14/2024 07/12/2024 Ended Active Problems Problem Noted Date Diagnosed Date On hormone replacement therapy 05/13/2024 Vitamin B12 deficiency 11/28/2021 Fibromyalgia 10/06/2021 Gastric ulcer 10/06/2021 Uncomplicated asthma 10/06/2021 Encounters Date Type Department Care Team Description 08/01/2024 2:00 PM EDT Office Visit [address] [phone] Emmy Gayle PA History of gastric ulcer (Primary Dx); Abdominal bloating; Epigastric abdominal pain; Hematemesis with nausea 07/31/[address] [phone] Nicole Bianchi MD Ulcer; Abdominal Pain (For the past week); Weight Loss (6lbs) 07/12/2024 1:30 PM EDT Clinical Support [address] [phone] Vitamin B12 deficiency (Primary Dx) 07/12/[address] [phone] Barbra Car MA Clinical (B12 Orders) 07/05/2024 8:30 AM EDT Office Visit Vascular Surgery - [place] [address] [facility] [address] [place] [address] Phyllis Guerrero MD Varicose veins of bilateral lower extremities with other complications (Primary Dx); Pain of left lower extremity 06/14/2024 1:30 PM EDT Clinical Support [address] [phone] Vitamin B12 deficiency (Primary Dx) 05/31/[address] [phone] Loretta Nur MA 05/30/2024 12:00 PM EDT Ancillary Procedure [facility] [address] [place] [phone] Varicose veins of bilateral lower extremities with pain; Leg swelling 05/26/2024 Telephone Vascular Surgery - [place] [address] [place] [phone] Bar Esposito MA Reschedule 05/17/2024 1:30 PM EDT Clinical Support Adult Medicine [place] - [address] [phone] Vitamin B12 deficiency (Primary Dx) 05/16/2024 2:45 PM EDT Office Visit Obstetrics and Gynecology - [address] [phone] Leatha Bernard CNM On hormone replacement therapy (Primary Dx); Vaginal dryness, menopausal from Last 3 Months Immunizations Name Administration Dates Next Due Influenza trivalent, with pr eservative (Fluzone; Afluria) 6mo and older 10/23/2015,10/30/2014 PPD Test 10/12/2014 Pneumococcal polysaccharide 23 valent (Pneumovax 23) 2yo and older 11/19/2016 Tdap Tetanus diptheria acell ular pertussis (Boostrix; Adacel) 7yo and older 01/05/2023 Surgical History Surgery Date Site/Laterality Comments OTHER SURGICAL HISTORY 2015 PROCEDURE: [place] ARTHRD ANT INTERBODY MIN DSC LUMBAR; COMMENT: lumbar fusion - dr. mota NECK SURGERY 2019 PROCEDURE: HISTORICAL NECK SURGERY; COMMENT: dr. mota - cervical fusion ELBOW SURGERY 2019 Right PROCEDURE: HISTORICAL ELBOW SURGERY; COMMENT: ulnar nerve - dr. mota OTHER SURGICAL HISTORY 2018 Right PROCEDURE: HISTORICAL EAR SURGERY; COMMENT: right ear reconstruction PARTIAL HYSTERECTOMY PROCEDURE: NH SUPRACERVICAL ABDL HYSTER W/WO RMVL TUBE OVARY ABDOMINAL SURGERY PROCEDURE: HISTORICAL ABDOMINAL SURGERY; COMMENT: prodedure for bleeding ulcer BACK SURGERY 05/2023 PROCEDURE: HISTORICAL BACK SURGERY; COMMENT: Left L3-L4 laminectomy with partial facetectomy and foraminotomy; Dr. Linares Medical History Medical History Date Comments Fibromyalgia 10/06/2021 DX:Fibromyalgia S/P cervical spinal fusion 10/06/2021 DX:S/ P cervical spinal fusion S/P lumbar fusion 10/06/2021 DX:S/P lumbar fusion Uncomplicated asthma 10/06/2021 DX:Uncompli cated asthma History of gastric ulcer 10/06/2021 DX:Hist ory of gastric ulcer H/O: GI bleed 10/06/2021 DX:H/O: GI bleed Vitamin B12 deficiency 11/28/2021 DX:Vitami n B12 deficiency Family History Medical History Relation Name Comments Arthritis Brother 1 Prabhu Asthma Brother 1 Prabhu Arthritis Brother 2 [place]em[place] Asthma Brother 2 [place] Asthma Daughter Liliana Depression Daughter Liliana Diabetes Father Heart attack Father Hypertension Father with CAD Alzheimer's disease Maternal Grandfather Other: GI issues Maternal Grandmother Arthritis Mother Asthma Mother Depression Mother Hypertension Mother Other: Fibromyalgia Mother Asthma Son 1 Goyo ADD / ADHD Son 2 Ayden Asthma Son 2 Ayden Colon cancer Neg Hx Ovarian cancer Neg Hx Stroke Neg Hx Relation Name Status Comments Brother 1 Prabhu Alive Brother 2 [place] Alive Daughter Liliana Alive Father Maternal Grandfather Maternal Grandmother Mother Alive Paternal Grandfather Paternal Grandmother Son 1 Goyo Alive Son 2 Ayden Alive Social History Tobacco Use Types Packs/Day Years Used Date Smoking Tobacco: Never Smokeless Tobacco: Never Tobacco Cessation:Counseling Given: Not Answered Alcohol Use Standard Drinks/Week Comments Yes 0 (1 standard drink = 0.6 oz pur e alcohol) soc Housing Instability Answer Date Recorde d Are you worried that in the next 2 months you may not have stable housing? No 06/13/2024 Food Access & Nutrition Answer Date Rec orded Do you have access to a vari ety of food including fruits and vegetables? Patient declined 06/13/2024 Health Literacy Answer Date Recorded How often do you need to hav e someone help you when you read instructions, pamphlets, or other written material from your doctor or pharmacy? Never 06/13/2024 Caregiver: How often do you need to have someone help you when you read instructions, pamphlets, or other written material from your doctor or pharmacy? Not on file 06/13/2024 Financial Risk Answer Date Recorded How hard is it for you to pa y for the very basics like food, housing, medical care, and air conditioning / heating? Not very hard 06/13/2024 Transportation Answer Date Recorded Has the lack of transportati on kept you from meetings, work, or from getting things needed for daily living? No Has the lack of transportati on kept you from medical appointments or from getting medications? No 06/13/2024 Social Isolation Answer Date Recorded How often do you feel lonely or isolated from th ose around you? Rarely 06/13/2024 Food Risk Answer Date Recorded Within the past 12 months we worried whether our food would run out before we got money to buy more. Never true 06/13/2024 Within the past 12 months th e food we bought just didn't last and we didn't have money to get more. Never true 06/13/2024 Dependent Care Answer Date Recorded Do you need help finding or paying for care for your loved ones. For example, early childhood coordinator or elderly care for an older adult? Unable to respond 06/13/2024 Education Answer Date Recorded Do you think completing more education or training, like finishing a GED, going to college, or learning a trade, would be helpful for you? N/A 06/13/2024 Employment and Income Answer Date Recor ded During the last four weeks, have you been actively looking for work? Yes 06/13/2024 Living Situation Answer Date Recorded What is your living situation? 0 06/13/2024 Comments No Sex and Gender Information Value Date Recorded Sex Assigned at Not on file Legal Sex Female 4:56 PM EST Gender Identity Not on file Sexual Orientation Not on file Obstetrics History Para Term AB IAB SAB Ectopic Multiple Livin g Live Births 3 3 3 0 0 0 0 0 0 0 0 Date Outcome GA Total Labor Labor/2nd/3rd Weight Sex Type Anes PTL Kiesha A1 A5 Name Clin Term Term Term Last Filed Vital Signs Vital Sign Reading Time Taken Comments Blood Pressure 121/77 08/01/2024 2:02 PM EDT Pulse 62 08/01/2024 2:02 PM EDT Temperature 37.2 ??C (98.9 ??F) 08/01/2024 2:02 PM ED T Respiratory Rate 15 08/01/2024 2:02 PM EDT Oxygen Saturation - - Inhaled Oxygen Concentration - - Weight 87.1 kg (192 lb) 08/01/2024 2:02 PM EDT Height 157.5 cm (5' 2 ) 08/01/2024 2:02 PM EDT Body Mass Index 35.12 08/01/2024 2:02 PM EDT Plan of Treatment Upcoming Encounters Date Type Department Care Team (Late st Contact Info) Description 08/16/2024 4:00 PM EDT Clinical Support [facility] [address] [place] [phone] 10/11/2024 1:00 PM EDT Office Visit Vascular Surgery - [place] [address] [place] [phone] Phyllis Guerrero MD [address] [place] [address] Health Maintenance Due Date Last Done Comments Hepatitis B Vaccines (1 of 3 - 19+ 3-dose series) 1996 Pneumococcal Vaccine: Pediatrics (0 to 5 Years) and At-Risk Patients (6 to 64 Years) (2 of 2 - PCV) 11/19/2017 11/19/2016 Colorectal Cancer Screening: Colonoscopy 02/01/2022 HIV Screening 02/01/2022 Hepatitis C Screening 02/01/2022 COVID-19 Vaccine ( season) 2023 Influenza Vaccine (Season Ended) 2024 10/23/2015, 10/30/2014 Depression Screening 06/13/2025 06/13/2024, 09/10/19 24 Social Influencers of Health Screening 06/13/2025 06/13/2024 Breast Cancer Screening 02/21/2026 02/22/20 24, 01/28/2023, 01/27/2022, Additional history exists Cholesterol Screening (Lipid Panel) 01/14/2028 01/13/2023 Cervical Cancer Screening: HPV 05/20/2028 05/21/2023 DTaP,Tdap,and Td Vaccines (2 - Td or Tdap) 01/05/2033 01/05/2023 HIB Vaccines Aged Out No longer eligi ble based on patient's age to complete this topic HPV Vaccines Aged Out No longer eligi ble based on patient's age to complete this topic Hepatitis A Vaccines Aged Out No long er eligible based on patient's age to complete this topic IPV Vaccines Aged Out No longer eligi ble based on patient's age to complete this topic MMR Vaccines Aged Out No longer eligi ble based on patient's age to complete this topic Meningococcal ACWY Vaccine Aged Out N o longer eligible based on patient's age to complete this topic Meningococcal B Vaccine Aged Out No l onger eligible based on patient's age to complete this topic RSV Immunization Patients Under 20 months Aged Out No longer eligible based on patient's age to complete this topic Varicella Vaccines Aged Out No longer eligible based on patient's age to complete this topic Procedures Procedure Name Priority Date/Time Associated Diagnosis Comments VAS US DUPLEX LOWER EXT VENOUS RIGHT Routine 05/30/2024 12:25 PM EDT Varicose veins of bilateral lower extremities with pain Leg swelling MG MAMMO DIGITAL SCREENING W GREGORY BILAT Routine 02/22/2024 1:15 PM EST Encounter for screening mammogram for breast cancer DEPRESSION SCREENING Routine 09/10/2023 HPV Routine 05/21/2023 LIPID PANEL Routine 01/13/2023 from Last 3 Months or Most Recently Relevant to Health Maintenance Results * Vascular US duplex lower extremity venous right (05/30/2024 12:25 PM EDT) Right GSK johana 0.26 cm CV VAS LAB Right GSDC johana 0.14 cm CV VAS LAB Right GSMT johana 0.41 cm CV VAS LAB Right GSPC johana 0.27 cm CV VAS LAB Right GSPT johana 0.47 cm CV VAS LAB Right SFJ Diameter 0.77 cm CV VAS LAB Right SSMC johana 0.22 cm CV VAS LAB Right SSPC johana 0.29 cm CV VAS LAB Right fem mid reflux 483 ms CV VAS LAB Right pop reflux 678 ms CV VAS LAB Right GSK reflux 4,422 ms CV VAS LAB Right GSPC reflux 4,445 ms CV VAS LAB Right AAS johana 0.42 cm CV VAS LAB Right SPJ Diameter 0.34 cm CV VAS LAB Anatomical Region Laterality Modality Vascular, Abdomen Ultrasound Narrative 05/30/2024 3:26 PM EDT The study performed in the right lower extremity. No right deep vein thrombosis. Right femoral vein and right popliteal vein have a minimal reflux. Right superficial veins have no thrombosis. Right GSV has significant reflux at the knee and upper calf location. Right SSV has no significant reflux. Right Lower Venous No evidence of deep vein thrombosis in the common femoral, deep femoral, proximal femoral, mid femoral, distal femoral, popliteal, greater saphenous, small saphenous, posterior tibial and peroneal veins of the right leg. The vessels showed compressibility. Interrogation showed phasic and spontaneous Doppler signals. Right Venous Insufficiency Duplex The exam was performed with the patient in reverse Trendelenburg. Electronic Commerce Specialist Details A sprague scale, color and doppler analysis ultrasound was performed. During the study longitudinal and transverse views were obtained. Pulsed wave doppler was performed. us Mary DAWKINS CV VASCULAR PROCEDURES Final R esult * MG Mammo Digital Screening w Gregory bilat (02/22/2024 1:15 PM EST) Anatomical Region Laterality Modality Breast Bilateral Mammography 02/24/2024 9:02 AM EST Impressions 02/24/2024 9:04 AM EST Benign. BI-RADS CATEGORY: 1 - NEGATIVE RECOMMENDATION: Screening bilateral mammogram is recommended in 1 year. Mammo Location: [facility], [address] [place] [address], [facility], . -------- FINAL REPORT -------- Dictated By: Bina Sparrow Dictated Date: 02/24/2024 09:02 ET Assigned Physician: Bina Sparrow Reviewed and Electronically Signed By: Bina Sparrow Signed Date: 02/24/2024 09:04 ET Workstation ID: [id number] Transcribed By: Self Edit Transcribed Date: 02/24/2024 09:02 ET Narrative 02/24/2024 9:04 AM EST CLINICAL: 48 years old, Female, routine annual exam. COMPARISON: Mammograms 01/27/2022 and 01/28/2023. ?? TECHNIQUE: Bilateral MLO and CC views were obtained digitally with 3-D mammogram (digital breast tomosynthesis). Computer-aided detection was utilized in evaluation of this exam (CAD). FINDINGS: There is no evidence of suspicious mass or architectural distortion. ??No worrisome calcifications are evident. ??There has been no significant change from prior exam(s). ?? BREAST DENSITY: B - There are scattered areas of fibroglandular density. Procedure Note Bina Sparrow MD - 02/24/2024 CLINICAL: 48 years old, Female, routine annual exam. COMPARISON: Mammograms 01/27/2022 and 01/28/2023. TECHNIQUE: Bilateral MLO and CC views were obtained digitally with 3-Dmammogram (digital breast tomosynthesis). Computer-aided detection wasutilized in evaluation of this exam (CAD). FINDINGS: There is no evidence of suspicious mass or architectural distortion. Noworrisome calcifications are evident. There has been no significantchange from prior exam(s). BREAST DENSITY: B - There are scattered areas of fibroglandular density. IMPRESSION: Benign. BI-RADS CATEGORY: 1 - NEGATIVE RECOMMENDATION: Screening bilateral mammogram is recommended in 1 year. Mammo Location: [facility], [address] [place] [address], [facility], . -------- FINAL REPORT -------- Dictated By: Bina Sparrow Dictated Date: 02/24/2024 09:02 ET Assigned Physician: Bina Sparrow Reviewed and Electronically Signed By: Bina Sparrow Signed Date: 02/24/2024 09:04 ET Workstation ID: [id number] Transcribed By: Self Edit Transcribed Date: 02/24/2024 09:02 ET us Nicole Barber MD IMG BI PROCEDURES Final Result * Depression Screening (09/10/2023) Depression Screening abstracted Historical Provider HEALTH MAINTENANCE Final Result * Cervical Cancer Screening: HPV (05/21/2023) Pathologist On license of [facility] Cervical Cancer Screening: HPV negative, abstracted Historical Provider HEALTH MAINTENANCE Final Result * (ABNORMAL) Lipid panel (01/13/2023) [facility] LDL/HDL Ratio 3 0 - 4 Triglycerides 81 0 - 150 mg/dL Cholesterol 206(A) 0 - 200 mg/dL HDL 65 >=40 mg/dL LDL Cholesterol 125(A) 0 - 100 mg/dL Blood Venous blood specimen / Unknown Historical Provider LAB BLOOD ORDERABLES Tawnya l Result from Last 3 Months or Most Recently Relevant to Health Maintenance Insurance * Guarantor: Akhil De Los Santos Account Type Relation to Patient Date of Phone Billing Address Personal/Family Self 1975 [address] [place] [address] [facility] [employer] Care Teams Yacht Hand Relationship Specialty Start Date End Date Nicole Barber MD [address] [place] [id number] PCP - General Internal Medicine 09/22/21
== END 2024-08-01 22:18 | disposition left against medical advice (07) ==
PROVIDERS: Physician Assistant; Emergency Provider Emergency Medicine; PCP Internal Medicine
DX: R10.2 Pelvic and perineal pain (principal); I49.8 Other specified cardiac arrhythmias; R10.13 Epigastric pain; R11.2 Nausea with vomiting, unspecified; Z79.899 Other long term (current) drug therapy
CPT/HCPCS: 36415; 80053; 83690; 84484; 85025; 93005; 99283

== ENCOUNTER → 2024-08-01 15:58 | Outpatient (BNV) | payer OTHER, SELFPAY | PROVIDERS: Emergency Provider Emergency Medicine; PCP Internal Medicine; Visit Provider Internal Medicine Cardiovascular Disease | DX: R10.9 Unspecified abdominal pain (principal) | CPT/HCPCS: 93010 ==